=== PATIENT | female | born 1995 | race African-American/Black ===

== ENCOUNTER 2018-03-21 22:01 | Emergency (ER) | payer BC ==
[2018-03-21] MEDS ORDERED: Ondansetron ODT 4 MG TAB ONE (22:11)
== END 2018-03-21 23:19 | disposition home or self-care (01) ==
LOC: SCSER 22:01
DX: R11.2 Nausea with vomiting, unspecified (principal); R19.7 Diarrhea, unspecified; R50.9 Fever, unspecified; J45.909 Unspecified asthma, uncomplicated
CPT/HCPCS: 99283; Q0162